=== PATIENT | male | born 1965 | race Caucasian/White ===

== ENCOUNTER 2021-11-17 08:31 | Outpatient (CLI) | payer BC ==
[2021-11-17] MEDS ORDERED: Iopamidol 370 76% 100 ML VIAL ONE (14:51)
== END 2021-11-17 08:32 | disposition home or self-care (01) ==
LOC: CSHCT 08:31
PROVIDERS: ATTEND Family Medicine
DX: I71.4 Abdominal aortic aneurysm, without rupture (principal); K76.0 Fatty (change of) liver, not elsewhere classified; K76.9 Liver disease, unspecified; N20.0 Calculus of kidney; K57.90 Diverticulosis of intestine, part unspecified, without perforation or abscess without bleeding
CPT/HCPCS: 74174; Q9967